=== PATIENT | male | born 1975 | race Caucasian/White ===

== ENCOUNTER 2020-03-30 09:31 | Day surgery (SDC) | payer BC, SELFPAY ==
[2020-03-30] MEDS ORDERED: SIMETHICONE 40 MG/0.6 ML ML ONE (10:36)
[2020-03-30] MEDS: MIDAZOLAM HCL 5 MG/5 ML VIAL ONE ×2 (11:40→11:43)
[2020-03-30] MEDS: fentaNYL CITRATE/PF 100 MCG/2 ML AMP ONE ×2 (11:40→11:47)
[2020-03-30 12:46] VITALS: BP_SYST 132
== END 2020-03-30 13:05 | disposition home or self-care (01) ==
LOC: SDS 09:31 → SMU 09:35 → SDS 13:05
PROVIDERS: ATTEND Surgery
DX: K38.8 Other specified diseases of appendix (principal); K57.30 Diverticulosis of large intestine without perforation or abscess without bleeding; Z98.890 Other specified postprocedural states; Z79.899 Other long term (current) drug therapy; Z20.828 Contact with and (suspected) exposure to other viral communicable diseases
CPT/HCPCS: 45380; 88305; G0378; J2250; J3010; U0003